=== PATIENT | female | born 1990 | race Caucasian/White ===

== ENCOUNTER 2018-07-15 18:25 | Emergency (ER) | payer MEDICAID, OTHER ==
[~2018-07-15] VITALS: Ht 160 cm; Wt 71.7 kg
--- NOTE | 2018-07-15 19:12 | Diagnostic Imaging Report ---
INDICATION: Right hand and wrist pain. Time of exam 6:46 PM 3 views right hand were obtained. The distal radius and ulna are intact. Carpus is unremarkable. The metacarpals are unremarkable. Phalanges appear to be intact. No fractures are seen. IMPRESSION: No acute bony abnormality is detected. Dictated by: Dictated on workstation # [id number]
--- NOTE | 2018-07-15 19:15 | ED Upper Extremity ---
General Chief Complaint: Upper Extremity Stated Complaint: PT FELL - THINKS SHE BROKE HER RT WRIST Source: patient History of Present Illness Date Seen by Provider: Jul 15, 2018 Time Seen by Provider: 19:15 Initial Comments 28-year-old female presenting with complaints of right wrist and hand pain. She states that her 5-year-old son and mother to shut up. She was running to discipline her son when she tripped over a step and fell. In the process she had landed on outstretched hand and was having pain. She does have some tingling into her fingers. She is able to move her hand and wrist but it is causing pain. There is some mild swelling already. There is no definite bruising. She did not hit her head or have any loss of consciousness. She is not taking anything for pain yet. She denies any prior injuries to that hand. Onset: just prior to arrival Severity: moderate Pain/Injury Location: right wrist, right hand Method of Injury: fell Allergies and Home Medications Patient Home Medication List Home Medication List Reviewed: Yes Review of Systems Constitutional: no symptoms reported EENTM: no symptoms reported Respiratory: no symptoms reported Cardiovascular: no symptoms reported Gastrointestinal: no symptoms reported Genitourinary: no symptoms reported Musculoskeletal: see HPI Skin: see HPI Past Lbuiusl-Uhsjxy-Hqcdac Hx Past Med/Social Hx: Reviewed Nursing Past Med/Soc Hx Physical Exam Vital Signs Vital Signs - First Documented 07/15/18 19:13 Temp 98.1 Pulse 90 Resp 15 B/P (MAP) 125/70 (88) Pulse Ox 98 O2 Delivery Room Air Capillary Refill : Height, Weight, BMI Height: '" Weight: lbs. oz. kg; BMI Method: General Appearance: WD/WN, no apparent distress Cardiovascular: normal peripheral pulses Wrist: Yes bone tenderness (mild on the right side); No deformity, No ecchymosis; Yes limited ROM (on the right due to pain.) Hand: Right (pain and tenderness with making a fist on the right hand and with flexion and extension of the hand at the wrist.) Neurologic/Tendon: normal motor functions, normal tendon functions, sensory deficit (complains of mild tingling in her fingers on the right hand) Neurologic/Psychiatric: alert, normal mood/affect, oriented x 3 Skin: normal color, warm/dry Progress/Results/Core Measures Results/Orders My Orders Orders - MIKE SMALL MD Hand 3 View Right (07/15/18 19:01) Orthopedic Equiment (07/15/18 19:28) Vital Signs/I&O 07/15/18 07/15/18 19:13 19:35 Temp 98.1 Pulse 90 71 Resp 15 16 B/P (MAP) 125/70 (88) 109/75 (86) Pulse Ox 98 95 O2 Delivery Room Air Room Air Progress Progress Note : Progress Note X-rays of the right hand and wrist show no acute fracture or dislocation on my review of the 3 view films. The radiologist's reading also shows no acute fractures or dislocations. Will treat symptomatically with the cockup wrist splint and at home and use NSAIDs and ice, rest and elevation. Diagnostic Imaging Diagonstic Imaging: Xray Plain Films/CT/US/NM/MRI: hand Comments NAME: [facility] REC#: [id number] PT STATUS: REG ER : 1990 PHYSICIAN: MIKE SMALL MD ADMIT DATE: 07/15/18/ER FS Draft Date of Exam:07/15/18 HAND 3 VIEW RIGHT INDICATION: Right hand and wrist pain. Time of exam 6:46 PM 3 views right hand were obtained. The distal radius and ulna are intact. Carpus is unremarkable. The metacarpals are unremarkable. Phalanges appear to be intact. No fractures are seen. IMPRESSION: No acute bony abnormality is detected. Dictated on workstation # [id number] Dict: 07/15/181908 Trans: 07/15/181910 DAVONTE [id number] Interpreted by: JALIL HENSLEY MD Electronically signed by: Reviewed: Reviewed by Me (and radiologist reading) Departure Impression Primary Impression: Unspecified sprain of right wrist, initial encounter Additional Impressions: Contusion of right wrist, initial encounter Fall as cause of accidental injury at home as place of occurrence Qualified Codes: W19.XXXA - Unspecified fall, initial encounter; Y92.009 - Unspecified place in unspecified non-institutional (private) residence as the place of occurrence of the external cause Disposition: 01 HOME, SELF-CARE Condition: Stable Departure-Patient Inst. Decision time for Depature: 19:26 Referrals: MARLENY ANGELO MD (PCP/Family) Primary Care Physician Patient Instructions: Wrist Sprain (DC), Contusion (DC) Add. Discharge Instructions: May use ice 15-20 minutes every few hours as needed for pain and swelling. Ibuprofen or Naproxen as needed for inflammation and pain in the wrist and hand. Use the wrist splint for support or you may try an doris bandage if the splint is too tight. Use this for the next week. Check with clinic if not improving or having more problems over the next week. All discharge instructions reviewed with patient and/or family. Voiced understanding. Images Extremities-Upper 1 - Tenderness, Other-See Progress Note Progress Area of tenderness and mild swelling to back of hand and wrist. MIKE SMALL MD Jul 15, 2018 19:15
[2018-07-15 19:35] VITALS: BP 109/75
== END 2018-07-15 19:35 | disposition home or self-care (01) ==
LOC: EDUNIT# 18:25 → ER FS 18:27
DX: S63.91XA Sprain of unspecified part of right wrist and hand, initial encounter (principal); W10.8XXA Fall (on) (from) other stairs and steps, initial encounter; Y92.009 Unspecified place in unspecified non-institutional (private) residence as the place of occurrence of the external cause
CPT/HCPCS: 73130

== ENCOUNTER → 2019-12-31 | Outpatient (CLI) | payer SELFPAY | LOC: LAB FS 11:29 | PROVIDERS: ATTEND Family Medicine | DX: N92.6 Irregular menstruation, unspecified (principal) | CPT/HCPCS: 36415; 84702 ==

== ENCOUNTER → 2020-01-03 | Outpatient (CLI) | payer SELFPAY | LOC: LAB FS 13:10 | PROVIDERS: ATTEND Family Medicine | DX: O26.859 Spotting complicating pregnancy, unspecified trimester (principal) | CPT/HCPCS: 36415; 84702 ==

== ENCOUNTER 2020-07-17 15:38 | Outpatient (CLI) | payer MEDICAID ==
[~2020-07-17] VITALS: Ht 160 cm; Wt 96.0 kg
[2020-07-17 15:40] VITALS: BP 123/61
--- NOTE | 2020-07-20 08:41 | Physician Query-Final Dx ---
ELLIS HENRIQUEZ 07/20/20 0841: Clinic Account Progress/Dx Physician Query: Please give diagnosis Please include # weeks gestation Date of Service Jul 17, 2020 at 15:38 ZAY CAMARILLO DO 07/21/20 0834: Clinic Account Progress/Dx DIAGNOSIS: Diagnosis 33 week IUP Increased movement ELLIS HENRIQUEZ July 20, 2020 08:41 ZAY CAMARILLO DO July 21, 2020 08:34
== END 2020-07-17 17:02 | disposition home or self-care (01) ==
LOC: LDRP 15:38 → WSo 15:38
PROVIDERS: ATTEND Obstetrics & Gynecology
DX: O36.8190 Decreased fetal movements, unspecified trimester, not applicable or unspecified (principal); Z3A.00 Weeks of gestation of pregnancy not specified
CPT/HCPCS: 99212

== ENCOUNTER → 2020-07-23 | Outpatient (CLI) | payer MEDICAID ==
--- NOTE | 2020-07-23 15:21 | Diagnostic Imaging Report ---
INDICATION: Gestational diabetes. EXAMINATION: Biophysical profile. FINDINGS: There is a single live fetus in a cephalic presentation. heart rate was recorded at 146 bpm. Amniotic fluid index is 11.8 cm. Biophysical profile score is 6 out of 8. Two point reduction was given for lack of movements visualized. IMPRESSION: biophysical profile score 6 out of 8. Dictated by: Dictated on workstation # [id number]
== END ==
LOC: RAD 11:36
PROVIDERS: ATTEND Obstetrics & Gynecology
DX: O24.414 Gestational diabetes mellitus in pregnancy, insulin controlled (principal); Z3A.00 Weeks of gestation of pregnancy not specified
CPT/HCPCS: 76819

== ENCOUNTER 2020-07-30 13:29 | Outpatient (CLI) | payer MEDICAID ==
[~2020-07-30] VITALS: Ht 160 cm; Wt 96.2 kg
[2020-07-30 13:35] VITALS: BP 138/78
[2020-07-30 13:39] VITALS: BP 138/78
[2020-07-30 13:59] LABS: BILIRUBIN,URINE NEGATIVE (NEGATIVE); CLARITY,URINE CLEAR; COLOR,URINE YELLOW; GLUCOSE, URINE (UA) NEGATIVE (NEGATIVE); KETONES,URINE TRACE (NEGATIVE); LEUKOCYTE ESTERASE ,URINE NEGATIVE (NEGATIVE); NITRITE,URINE NEGATIVE (NEGATIVE); PROTEIN,URINE TRACE (NEGATIVE)
[2020-07-30 14:25] LABS: BACTERIA,URINE TRACE /HPF; RBC,URINE 0-2 /HPF; WBC,URINE 0-2 /HPF
--- NOTE | 2020-07-31 08:12 | Physician Query-Final Dx ---
ELLIS HENRIQUEZ 07/31/20 0812: Clinic Account Progress/Dx Physician Query: Please give diagnosis Please include # weeks gestation Date of Service July 30, 2020 at 13:29 ZAY CAMARILLO DO 07/31/20 1457: Clinic Account Progress/Dx DIAGNOSIS: Diagnosis 35 week IUP UTI Irregular contractions ELLIS HENRIQUEZ July 31, 2020 08:12 ZAY CAMARILLO DO July 31, 2020 14:57
[2020-07-31] MEDS ORDERED: PREN1TAB79 PO (12:16)
[2020-07-31] MEDS ORDERED: MONT10TA21 PO (12:16)
[2020-07-31] MEDS ORDERED: RT-ALBUINH INH (12:16)
== END 2020-07-30 15:00 | disposition home or self-care (01) ==
LOC: WSo 13:29 → LDRP 13:31 → WSo 15:00
PROVIDERS: ATTEND Obstetrics & Gynecology
DX: O62.9 Abnormality of forces of labor, unspecified (principal); Z3A.35 35 weeks gestation of pregnancy
CPT/HCPCS: 81000; 87088; 99214

== ENCOUNTER 2020-07-31 11:51 | Outpatient (CLI) | payer MEDICAID ==
[~2020-07-31] VITALS: Ht 160 cm; Wt 95.2 kg
[2020-07-31 11:45] VITALS: BP 134/75
[2020-07-31 12:00] VITALS: BP 134/75
[2020-07-31] MEDS ORDERED: MONT10TA21 PO (12:16)
[2020-07-31] MEDS ORDERED: PREN1TAB79 PO (12:16)
[2020-07-31] MEDS ORDERED: RT-ALBUINH INH (12:16)
[2020-07-31 12:23] VITALS: BP 129/75
[2020-07-31 13:15] VITALS: BP 129/75
--- NOTE | 2020-08-03 07:38 | Physician Query-Final Dx ---
ELLIS HENRIQUEZ 08/03/20 0738: Clinic Account Progress/Dx Physician Query: Please give diagnosis Please include # weeks gestation Date of Service July 31, 2020 at 11:51 ZAY CAMARILLO DO 08/03/20 0753: Clinic Account Progress/Dx DIAGNOSIS: Diagnosis 35 week IUP Irregular contractions Non-compliance with previous instructions ELLIS HENRIQUEZ August 03, 2020 07:38 ZAY CAMARILLO DO August 03, 2020 07:53
== END 2020-07-31 13:15 | disposition home or self-care (01) ==
LOC: WSo 11:51 → LDRP 11:52 → WSo 13:15
PROVIDERS: ATTEND Obstetrics & Gynecology
DX: O62.9 Abnormality of forces of labor, unspecified (principal); Z3A.35 35 weeks gestation of pregnancy
CPT/HCPCS: 99213

== ENCOUNTER 2020-08-07 15:19 | Outpatient (CLI) | payer MEDICAID ==
[~2020-08-07] VITALS: Ht 160 cm; Wt 95.8 kg
[~2020-08-07 15:19] MED LIST: MONT10TA21 PO; PREN1TAB79 PO; RT-ALBUINH INH
[2020-08-07 15:37] VITALS: BP 129/75
--- NOTE | 2020-08-10 07:59 | Physician Query-Final Dx ---
ELLIS HENRIQUEZ 08/10/20 0759: Clinic Account Progress/Dx Physician Query: Please give diagnosis Please include # weeks gestation Date of Service August 07, 2020 at 15:19 BUCK KRAUS MD 08/10/20 1016: Clinic Account Progress/Dx DIAGNOSIS: Diagnosis False labor at 36 weeks gestation ELLIS HENRIQUEZ August 10, 2020 07:59 BUCK KRAUS MD August 10, 2020 10:16
== END 2020-08-07 17:00 | disposition home or self-care (01) ==
LOC: WSo 15:19 → LDRP 15:20 → WSo 17:00
PROVIDERS: ATTEND Obstetrics & Gynecology
DX: O47.03 False labor before 37 completed weeks of gestation, third trimester (principal); Z3A.36 36 weeks gestation of pregnancy
CPT/HCPCS: 99213

== ENCOUNTER 2021-01-10 06:39 | Emergency (ER) | payer MEDICAID ==
--- NOTE | 2021-01-10 06:51 | ED GI ---
General Stated Complaint: EMESIS;CONSTIPATION History of Present Illness Date Seen by Provider: Jan 10, 2021 Time Seen by Provider: 06:46 Initial Comments 30-year-old female presents with onset of nausea and vomiting this morning. Preceding that she states she has been "constipated for 1 week", but had a small BM this morning. This morning when she vomited she said it smelled like "fecal matter". Does complain of abdominal bloating. PMedHx signif only for asthms, SurgHx- cholecycstectomy in 2017. (ROVENSTINEANTHONY L DO) Allergies and Home Medications Allergies Coded Allergies: paroxetine (Verified Allergy, Unknown, Hives, 08/07/20) Patient Home Medication List Home Medication List Reviewed: Yes (ROVENSTINE,ANTHONY L DO) Albuterol Sulfate (Ventolin Hfa) 1 Puff Puff, 2 PUFF INH Q4H, (Reported) Entered as Reported by: TIMMY THOMPSON on 07/31/20 121 Montelukast Sodium (Singulair) 10 Mg Tablet, 10 MG PO DAILY, (Reported) Entered as Reported by: TIMMY THOMPSON on 07/31/20 121 Vit W-Ca,Fe,FA(<1 mg) ( Vitamins) 1 Each Tablet, 1 EACH PO DAILY, (Reported) Entered as Reported by: TIMMY THOMPSON on 07/31/20 121 Review of Systems Review of Systems Constitutional: No fever; malaise; No weakness Respiratory: Denies Cough, Denies Shortness of Air Cardiovascular: Denies Chest Pain, Denies Edema, Denies Lightheadedness Gastrointestinal: See HPI, Abdomen Distended, Abdominal Pain, Constipated; Denies Diarrhea, Denies Difficulty Swallowing; Nausea; Denies Poor Appetite; Vomiting Musculoskeletal: No back pain, No joint pain Skin: No change in color, No rash (ROVENSTINE,ANTHONY L DO) Past Tokztcs-Ewsrra-Tokbyr Hx Patient Social History Tobacco Use?: No (ROVENSTINE,ANTHONY L DO) Seasonal Allergies Seasonal Allergies: No (ROVENSTINE,ANTHONY L DO) Past Medical History Surgeries: Yes Adenoidectomy, Appendectomy, Gallbladder, Tonsillectomy Respiratory: Yes Asthma Cardiac: No Neurological: No Genitourinary: No Gastrointestinal: No Musculoskeletal: No Endocrine: No HEENT: No Cancer: No Psychosocial: No Integumentary: No Blood Disorders: No (ROVENSTINE,ANTHONY L DO) Physical Exam Vital Signs Vital Signs - First Documented 01/10/21 06:43 Pulse 97 Resp 18 B/P (MAP) 128/82 (97) Pulse Ox 96 O2 Delivery Room Air (CHARLEIVIVI TINEO) Vital Signs Capillary Refill : (ROVENSTINE,ANTHONY L DO) Height/Weight/BMI Height: 5'3.00" Weight: 158lbs. oz. 71.075696gd; 37.42 BMI Method:Stated General Appearance: WD/WN, no apparent distress Respiratory: chest non-tender, lungs clear, normal breath sounds Cardiovascular: regular rate, rhythm, no edema, no gallop, no JVD Gastrointestinal: soft, no organomegaly, distended; No guarding, No rebound; tenderness (generalized) Extremities: non-tender, no pedal edema Back: no CVA tenderness, no vertebral tenderness (LETICIASTSIRENA,ANTHONY L DO) Progress/Results/Core Measures Results/Orders Lab Results Laboratory Tests Test 01/10/21 07:05 Range/Units White Blood Count 16.0 H 4.3-11.0 10^3/uL Red Blood Count 5.00 3.80-5.11 10^6/uL Hemoglobin 14.3 11.5-16.0 g/dL Hematocrit 44 35-52 % Mean Corpuscular Volume 87 80-99 fL Mean Corpuscular Hemoglobin 29 25-34 pg Mean Corpuscular Hemoglobin Concent 33 32-36 g/dL Red Cell Distribution Width 14.4 10.0-14.5 % Platelet Count 316 130-400 10^3/uL Mean Platelet Volume 10.1 9.0-12.2 fL Immature Granulocyte % (Auto) 0 % Neutrophils (%) (Auto) 68 42-75 % Lymphocytes (%) (Auto) 24 12-44 % Monocytes (%) (Auto) 7 0-12 % Eosinophils (%) (Auto) 1 0-10 % Basophils (%) (Auto) 0 0-10 % Neutrophils # (Auto) 10.9 H 1.8-7.8 X 10^3 Lymphocytes # (Auto) 3.8 1.0-4.0 X 10^3 Monocytes # (Auto) 1.1 H 0.0-1.0 X 10^3 Eosinophils # (Auto) 0.2 0.0-0.3 10^3/uL Basophils # (Auto) 0.0 0.0-0.1 10^3/uL Immature Granulocyte # (Auto) 0.1 0.0-0.1 10^3/uL Neutrophils % (Manual) 68 % Lymphocytes % (Manual) 24 % Monocytes % (Manual) 7 % Eosinophils % (Manual) 1 % Blood Morphology Comment NORMAL Sodium Level 140 135-145 MMOL/L Potassium Level 3.7 3.6-5.0 MMOL/L Chloride Level 106 98-107 MMOL/L Carbon Dioxide Level 22 21-32 MMOL/L Anion Gap 12 5-14 MMOL/L Blood Urea Nitrogen 15 7-18 MG/DL Creatinine 0.57 L 0.60-1.30 MG/DL Estimat Glomerular Filtration Rate 125 BUN/Creatinine Ratio 26 Glucose Level 109 H 70-105 MG/DL Calcium Level 9.2 8.5-10.1 MG/DL Corrected Calcium 8.5-10.1 MG/DL Total Bilirubin 0.3 0.1-1.0 MG/DL Aspartate Amino Transf (AST/SGOT) 18 5-34 U/L Alanine Aminotransferase (ALT/SGPT) 24 0-55 U/L Alkaline Phosphatase 99 40-136 U/L Total Protein 7.2 6.4-8.2 GM/DL Albumin 4.7 H 3.2-4.5 GM/DL Lipase 25 8-78 U/L (VIVI BARBOSA DO) Medications Given in ED Current Medications Medications Dose Ordered Sig/Patrica Route Start Time Stop Time Status Last Admin Dose Admin Ondansetron HCl 4 mg ONCE ONCE IVP 01/10/21 07:00 01/10/21 07:02 DC 01/10/21 07:02 4 MG (VIVI BARBOSA DO) Vital Signs/I&O 01/10/21 06:43 Pulse 97 Resp 18 B/P (MAP) 128/82 (97) Pulse Ox 96 O2 Delivery Room Air (VIVI BARBOSA DO) Transfer of Care Time: 07:00 Care transferred to: transfer care to Dr Barbosa @ shift change (ANTHONY LEWIS DO) Departure Communication (Admissions) Acute abdominal series: Moderate stool volume. Patient's abdomen soft, nonsurgical on reevaluation. No vomiting in the ED. X- ray suggestive of chronic constipation without obvious bowel obstruction. Will prescribe nausea medication treat constipation with PCP follow-up as scheduled on Monday. Return precautions reviewed. Patient verbalizes understanding agreement discharge instructions prior to departure. (VIVI BARBOSA DO) Impression Primary Impression: Nausea and vomiting Additional Impressions: Constipation Abdominal pain Disposition: HOME, SELF-CARE Condition: Stable Departure-Patient Inst. Decision time for Depature: 08:31 (VIVI BARBOSA DO) Referrals: BRAYDON LEYVA DO (PCP) Primary Care Physician MARLENY ANGELO MD (Family) Primary Care Physician Patient Instructions: Nausea and Vomiting, Adult, Constipation, Adult ED, Abdominal Pain, Adult ED Add. Discharge Instructions: Please take nausea medication as directed. Use fleets enemas x2 and then drink two bottles of magnesium citrate daily for the next 3 days. Follow-up with your PCP on Monday as scheduled for reevaluation. Return to the ED if new or wo rsening symptoms. Scripts Ondansetron (Ondansetron Odt) 4 Mg Tab.rapdis 4 MG PO Q6H, #10 TAB Prov: VIVI BARBOSA DO 01/10/21 ANTHONY LEWIS DO Jan 10, 2021 06:51 VIVI BARBOSA DO Jan 10, 2021 08:34
[2021-01-10] MEDS ORDERED: NS IV 1000 ML 1,000 ML IV SCH (07:00)
[2021-01-10] MEDS ORDERED: ONDANSETRON 4 MG/2 ML (SDV) Z0FRAN IVP ONE (07:00)
--- NOTE | 2021-01-10 07:13 | Diagnostic Imaging Report ---
EXAMINATION: Abdomen 2 view HISTORY: diffuse abd. pain/ constipation COMPARISON: None available. FINDINGS: There is a moderate amount of gas and stool throughout the colon. Nonobstructive bowel gas pattern. No radiopaque foreign body. The lung bases are clear. The osseous structures are intact. Surgical clips are seen within the right upper quadrant and right pelvis. IMPRESSION: Moderate stool burden without other acute abnormality in the abdomen. Dictated by: Dictated on workstation # [id number]
[2021-01-10 07:17] LABS: BASOPHILS % (AUTO) 0 % (0-10); EOSINOPHILS % (AUTO) 1 % (0-10); HEMATOCRIT 44 % (35-52); HEMOGLOBIN 14.3 g/dL (11.5-16.0); LYMPHOCYTES % (AUTO) 24 % (12-44); MEAN CORPUSCULAR HEMOGLOBIN 29 pg (25-34); MEAN CORPUSCULAR HGB CONC 33 g/dL (32-36); MEAN CORPUSCULAR VOLUME 87 fL (80-99); MEAN PLATELET VOLUME 10.1 fL (9.0-12.2); MONOCYTES % (AUTO) 7 % (0-12); NEUTROPHILS % (AUTO) 68 % (42-75); PLATELET COUNT 316 10^3/uL (130-400)
[2021-01-10 07:18] LABS: EOSINOPHILS # (AUTO) 0.2 10^3/uL (0.0-0.3); LYMPHOCYTES # (AUTO) 3.8 X 10^3 (1.0-4.0); MONOCYTES # (AUTO) 1.1 X 10^3 (0.0-1.0); NEUTROPHILS # (AUTO) 10.9 X 10^3 (1.8-7.8)
[2021-01-10 07:35] LABS: EOSINOPHILS % (MANUAL) 1 %; LYMPHOCYTES % (MANUAL) 24 %; MONOCYTES % (MANUAL) 7 %; NEUTROPHILS % (MANUAL) 68 %; RBC MORPH NORMAL
[2021-01-10 07:38] LABS: ALANINE AMINOTRANSFERASE 24 U/L (0-55); ALBUMIN 4.7 GM/DL (3.2-4.5); ALKALINE PHOSPHATASE 99 U/L (40-136); BILIRUBIN,TOTAL 0.3 MG/DL (0.1-1.0); BUN/CREATININE RATIO 26; CALCIUM 9.2 MG/DL (8.5-10.1); CARBON DIOXIDE 22 MMOL/L (21-32); CHLORIDE 106 MMOL/L (98-107); CREATININE SERUM 0.57 MG/DL (0.60-1.30); GFR ESTIMATED 125; GLUCOSE 109 MG/DL (70-105); LIPASE 25 U/L (8-78); POTASSIUM 3.7 MMOL/L (3.6-5.0); SODIUM 140 MMOL/L (135-145); TOTAL PROTEIN 7.2 GM/DL (6.4-8.2)
[2021-01-10] MEDS ORDERED: ONDA4TAB11 PO (08:33)
[2021-01-10 08:39] VITALS: BP 136/74
== END 2021-01-10 08:39 | disposition home or self-care (01) ==
LOC: EDUNIT# 06:39 → ER FS 06:42
DX: R11.2 Nausea with vomiting, unspecified (principal); K59.00 Constipation, unspecified; R10.84 Generalized abdominal pain; J45.909 Unspecified asthma, uncomplicated
CPT/HCPCS: 36415; 74019; 80053; 83690; 85007; 85027

== ENCOUNTER → 2021-01-12 | Outpatient (CLI) | payer MEDICAID ==
[~2021-01-12] MED LIST changes: +ONDA4TAB11 PO
--- NOTE | 2021-01-12 16:03 | Diagnostic Imaging Report ---
INDICATION: Chronic constipation. TIME OF EXAM: 03:11 p.m. FINDINGS: Single view of the abdomen was obtained. There are surgical clips in the right upper quadrant. Bowel gas pattern is nonobstructed. There is moderate stool in the right colon. No free air or pathologic calcifications are seen. IMPRESSION: Moderate stool in the right colon. The study is otherwise unremarkable. Dictated by: Dictated on workstation # [id number]
== END ==
LOC: RAD FS 14:55
PROVIDERS: ATTEND Family Medicine
DX: K59.09 Other constipation (principal)
CPT/HCPCS: 74018

== ENCOUNTER 2021-05-19 04:22 | Emergency (ER) | payer BC, MEDICAID ==
[2021-05-19 04:55] LABS: BASOPHILS % (AUTO) 0 % (0-10); EOSINOPHILS # (AUTO) 0.4 10^3/uL (0.0-0.3); EOSINOPHILS % (AUTO) 3 % (0-10); HEMATOCRIT 40 % (35-52); HEMOGLOBIN 13.5 g/dL (11.5-16.0); LYMPHOCYTES # (AUTO) 3.1 10^3/uL (1.0-4.0); LYMPHOCYTES % (AUTO) 28 % (12-44); MEAN CORPUSCULAR HEMOGLOBIN 29 pg (25-34); MEAN CORPUSCULAR HGB CONC 34 g/dL (32-36); MEAN CORPUSCULAR VOLUME 84 fL (80-99); MEAN PLATELET VOLUME 10.3 fL (9.0-12.2); MONOCYTES # (AUTO) 0.7 10^3/uL (0.0-1.0); MONOCYTES % (AUTO) 6 % (0-12); NEUTROPHILS # (AUTO) 6.6 10^3/uL (1.8-7.8); NEUTROPHILS % (AUTO) 61 % (42-75); PLATELET COUNT 260 10^3/uL (130-400); WHITE BLOOD COUNT 10.8 10^3/uL (4.3-11.0)
[2021-05-19 05:15] LABS: POTASSIUM 3.4 MMOL/L (3.6-5.0); SODIUM 136 MMOL/L (135-145)
[2021-05-19 05:16] LABS: ALANINE AMINOTRANSFERASE 29 U/L (0-55); ALBUMIN 4.4 GM/DL (3.2-4.5); ALKALINE PHOSPHATASE 110 U/L (40-136); BILIRUBIN,TOTAL 0.3 MG/DL (0.1-1.0); BUN/CREATININE RATIO 15; CARBON DIOXIDE 22 MMOL/L (21-32); CHLORIDE 102 MMOL/L (98-107); CREATININE SERUM 0.61 MG/DL (0.60-1.30); GFR ESTIMATED 123; GLUCOSE 108 MG/DL (70-105); TOTAL PROTEIN 7.1 GM/DL (6.4-8.2)
--- NOTE | 2021-05-19 06:01 | ED Chest Pain ---
General Chief Complaint: Cardiac/General Problems Stated Complaint: RAPID HR Nursing Triage Note: Pt complaining of chest pain and felt like her heart was racing. 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 Source: patient Exam Limitations: no limitations History of Present Illness Date Seen by Provider: May 19, 2021 Time Seen by Provider: 02:00 Initial Comments Patient is a 31-year-old female who presents with sudden onset chest pain with palpitations while at work 20 minutes prior to ED arrival. Patient reports sharp pain across her chest which is nonradiating. She reports fast heart rate which is pending and fast. Reports feeling tingling in her left arm following chest pain. Denies nausea shortness of breath or sweats. Denies headache dizziness chills fever sweats. No nausea or vomiting.. No leg pain or swelling. No prior episodes. Denies history of arrhythmia or anxiety. No family history of premature coronary disease or unexplained before age 50. Severity/Quality: moderate Location: substernal Radiation: no radiation Activities at Onset: none Prior CP/Workup: other Modifying Factors: improves with rest ASA po INGREDIENT MIXER: No NTG SL INGREDIENT MIXER: No Associated Symptoms: dizziness Allergies and Home Medications Allergies Coded Allergies: paroxetine (Verified Allergy, Unknown, Hives, 08/07/20) Patient Home Medication List Home Medication List Reviewed: Yes Albuterol Sulfate (Ventolin Hfa) 1 Puff Puff, 2 PUFF INH Q4H, (Reported) Entered as Reported by: TIMMY THOMPSON on 07/31/20 121 Montelukast Sodium (Singulair) 10 Mg Tablet, 10 MG PO DAILY, (Reported) Entered as Reported by: TIMMY THOMPSON on 07/31/20 121 Ondansetron (Ondansetron Odt) 4 Mg Tab.rapdis, 4 MG PO Q6H Prescribed by: VIVI GUERRA on 01/10/21 0833 Vit W-Ca,Fe,FA(<1 mg) ( Vitamins) 1 Each Tablet, 1 EACH PO DAILY, (Reported) Entered as Reported by: TIMMY THOMPSON on 07/31/20 1216 Review of Systems Review of Systems Constitutional: see HPI EENTM: See HPI Respiratory: See HPI Cardiovascular: See HPI Gastrointestinal: See HPI Genitourinary: See HPI Musculoskeletal: see HPI Skin: see HPI Endocrine: See HPI Hematologic/Lymphatic: See HPI All Other Systems Reviewed Negative Unless Noted: Yes Past Vwshmkh-Hamvmh-Drbjtw Hx Patient Social History Tobacco Use?: Yes Use of E-Cig and/or Vaping dev: No Substance use?: No Alcohol Use?: No Pt feels they are or have been: No Seasonal Allergies Seasonal Allergies: No Past Medical History Surgeries: Yes Adenoidectomy, Appendectomy, Gallbladder, Tonsillectomy Respiratory: Yes Asthma Cardiac: No Neurological: No Genitourinary: No Gastrointestinal: No Musculoskeletal: No Endocrine: No HEENT: No Cancer: No Psychosocial: No Integumentary: No Blood Disorders: No Physical Exam Vital Signs Vital Signs - First Documented 05/19/21 04:27 Temp 36.7 Pulse 86 Resp 20 B/P (MAP) 142/77 (98) Pulse Ox 96 O2 Delivery Room Air Capillary Refill : Less Than 3 Seconds Height, Weight, BMI Height: 5'3.00" Weight: 158lbs. oz. 71.944016qd; 37.42 BMI Method:Stated General Appearance: Anxious HEENT: PERRL/EOMI Neck: Normal Inspection, Non Tender, Supple Respiratory: Chest Non Tender, Lungs Clear, Normal Breath Sounds Cardiovascular: Regular Rate, Rhythm, No Edema, No Gallop, No Murmur Gastrointestinal: Non Tender, Soft Extremity: Non Tender, No Calf Tenderness Neurologic/Psychiatric: Alert, Oriented x3 Skin: Normal Color Focused Exam Sepsis Stage: Ruled Out Progress/Results/Core Measures Results/Orders Lab Results Laboratory Tests Test 05/19/21 04:35 05/19/21 06:12 Range/Units White Blood Count 10.8 4.3-11.0 10^3/uL Red Blood Count 4.74 3.80-5.11 10^6/uL Hemoglobin 13.5 11.5-16.0 g/dL Hematocrit 40 35-52 % Mean Corpuscular Volume 84 80-99 fL Mean Corpuscular Hemoglobin 29 25-34 pg Mean Corpuscular Hemoglobin Concent 34 32-36 g/dL Red Cell Distribution Width 13.3 10.0-14.5 % Platelet Count 260 130-400 10^3/uL Mean Platelet Volume 10.3 9.0-12.2 fL Immature Granulocyte % (Auto) 1 % Neutrophils (%) (Auto) 61 42-75 % Lymphocytes (%) (Auto) 28 12-44 % Monocytes (%) (Auto) 6 0-12 % Eosinophils (%) (Auto) 3 0-10 % Basophils (%) (Auto) 0 0-10 % Neutrophils # (Auto) 6.6 1.8-7.8 10^3/uL Lymphocytes # (Auto) 3.1 1.0-4.0 10^3/uL Monocytes # (Auto) 0.7 0.0-1.0 10^3/uL Eosinophils # (Auto) 0.4 H 0.0-0.3 10^3/uL Basophils # (Auto) 0.0 0.0-0.1 10^3/uL Immature Granulocyte # (Auto) 0.1 0.0-0.1 10^3/uL D-Dimer 0.29 0.00-0.49 UG/ML Sodium Level 136 135-145 MMOL/L Potassium Level 3.4 L 3.6-5.0 MMOL/L Chloride Level 102 98-107 MMOL/L Carbon Dioxide Level 22 21-32 MMOL/L Anion Gap 12 5-14 MMOL/L Blood Urea Nitrogen 9 7-18 MG/DL Creatinine 0.61 0.60-1.30 MG/DL Estimat Glomerular Filtration Rate 123 BUN/Creatinine Ratio 15 Glucose Level 108 H 70-105 MG/DL Calcium Level 9.0 8.5-10.1 MG/DL Corrected Calcium 8.7 8.5-10.1 MG/DL Total Bilirubin 0.3 0.1-1.0 MG/DL Aspartate Amino Transf (AST/SGOT) 20 5-34 U/L Alanine Aminotransferase (ALT/SGPT) 29 0-55 U/L Alkaline Phosphatase 110 40-136 U/L Troponin I < 0.30 <0.30 NG/ML Total Protein 7.1 6.4-8.2 GM/DL Albumin 4.4 3.2-4.5 GM/DL My Orders Orders - VIVI GUERRA DO Cbc With Automated Diff (05/19/21 04:42) Comprehensive Metabolic Panel (05/19/21 04:42) Troponin I Fs (05/19/21 04:42) Chest 1 View Ap/Pa Only (05/19/21 04:42) Ekg Tracing (05/19/21 04:42) Fibrin Degradation Products (05/19/21 04:42) Ed Iv/Invasive Line Start (05/19/21 04:43) Troponin I Fs (05/19/21 05:55) Aspirin Chewable Tablet (Baby Aspirin Ch (05/19/21 06:15) Medications Given in ED Current Medications Medications Dose Ordered Sig/Patrica Route Start Time Stop Time Status Last Admin Dose Admin Aspirin 324 mg ONCE ONCE PO 05/19/21 06:15 05/19/21 06:16 DC 05/19/21 06:16 324 MG Vital Signs/I&O 05/19/21 04:27 Temp 36.7 Pulse 86 Resp 20 B/P (MAP) 142/77 (98) Pulse Ox 96 O2 Delivery Room Air Blood Pressure Mean: 98 Departure Communication (Admissions) EKG: Normal sinus rhythm, rate 92, no acute acute ST segment elevation, inverted T waves in the anterior leads with flattening of T waves in lateral leads. Chest x-ray: No acute cardiopulmonary disease. Patient asymptomatic in the emergency department with exception of residual anxiety. No arrhythmia on monitor EKG. EKG does show abnormal T waves in anterior leads. Previous comparison EKG available. Anticipate discharge home if repeat troponin is negative with instructions to follow-up with PCP for reevaluation and further management. Explicit return precautions reviewed. Patient verbalizes understanding agreement discharge instructions prior to departure. Impression Primary Impression: Chest pain Additional Impressions: Palpitations Abnormal EKG Disposition: 01 HOME, SELF-CARE Condition: Stable Departure-Patient Inst. Decision time for Depature: 06:01 Referrals: MARLENY ANGELO MD (PCP/Family) Primary Care Physician Patient Instructions: Chest Pain, Adult ED, Palpitations ED Add. Discharge Instructions: Your evaluated in the emergency department for chest pain and a fast pounding heart rhythm. EKG chest x-ray and labs were performed and are nondiagnostic. EKG was abnormal and requires reevaluation by your primary care provider. Please go home and rest and take 2 daily baby aspirin until your follow-up appointment. In the meantime if you develop chest pain shortness of breath or fast heart rate return to the emergency department. All discharge instructions reviewed with patient and/or family. Voiced understanding. VIVI GUERRA DO May 19, 2021 06:01
[2021-05-19] MEDS ORDERED: ASPIRIN 81 MG CHEW (CHILDREN'S ASA) PO ONE (06:15)
[2021-05-19 06:42] VITALS: BP 142/77
--- NOTE | 2021-05-19 06:46 | Diagnostic Imaging Report ---
INDICATION: Chest pain. FINDINGS: The heart size, mediastinal configuration, and pulmonary vascularity are within normal limits. There is no pleural effusion, pneumothorax, or pneumonia. The osseous structures are unremarkable. IMPRESSION: No acute cardiopulmonary abnormality. Dictated by: Dictated on workstation # [id number]
== END 2021-05-19 06:45 | disposition home or self-care (01) ==
LOC: EDUNIT# 04:22 → ER FS 04:25
DX: R07.9 Chest pain, unspecified (principal); R00.2 Palpitations; R94.31 Abnormal electrocardiogram [ECG] [EKG]; Z72.0 Tobacco use
CPT/HCPCS: 36415; 71045; 80053; 84484; 85025; 85379; 93005

== ENCOUNTER 2022-03-22 00:45 | Emergency (ER) | payer MEDICAID ==
[~2022-03-22] VITALS: Ht 160 cm; Wt 75.4 kg
[~2022-03-22 00:45] MED LIST changes: +ALB0.5V INH; +BUDE10.2 IH; +CETI10TA17 PO; +GFCD10B PO; +INHA1SPA49 MC; +MONT-40 PO; +OSLT75C PO; +PANT40TA52 PO; +PRED10TA22 PO
[2022-03-22 02:19] LABS: BILIRUBIN,URINE NEGATIVE (NEGATIVE); CLARITY,URINE SL CLOUDY; COLOR,URINE YELLOW; GLUCOSE, URINE (UA) NEGATIVE (NEGATIVE); KETONES,URINE NEGATIVE (NEGATIVE); LEUKOCYTE ESTERASE ,URINE TRACE (NEGATIVE); NITRITE,URINE NEGATIVE (NEGATIVE); PH,URINE 6.5 (5-9); PROTEIN,URINE NEGATIVE (NEGATIVE)
--- NOTE | 2022-03-22 02:19 | ED GU-Female ---
General Chief Complaint: OB < 20 WEEKS Stated Complaint: 1W PREFNANT /VAGINAL BLEEDNG/CAMPING Nursing Triage Note: Patient states that she is 17 weeks due on September 01, 2022. Patient states that she began having some mild cramping at approximately 1900 yesterday. Patient reports that she had a gush of blood about an hour ago. 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 She describes the blood as bright red with no bleeding in between the gushes. Source: patient Exam Limitations: no limitations History of Present Illness Date Seen by Provider: Mar 22, 2022 Time Seen by Provider: 01:00 Initial Comments Patient is a 32-year-old, G6, P5, estimated 17-week gestation female who presents with 2 episodes of vaginal bleeding this evening starting 1 hour prior to arrival. Patient states she began lower pelvic cramping earlier this evening and went to use the bathroom and on 2 separate occasions had a gush of bright re d blood come from her vagina. She is not currently active bleeding or spotting. She reports quickening and has confirmed IUP at 7 weeks and is Rh+. She denies flank pain, urinary frequency urgency or dysuria. She denies dizziness or lightheadedness. She is not taking any pain medication or prior to arrival. Patient's OB practices at [facility]. Timing/Duration: just prior to arrival Severity/Quality: other Location: other Radiation: other Activities at Onset: other Sexual [place] History: other Modifying Factors: Improves With Other Associated Symptoms: other Allergies and Home Medications Allergies Coded Allergies: paroxetine (Verified Allergy, Unknown, Hives, 08/07/20) Patient Home Medication List Home Medication List Reviewed: Yes Albuterol Sulfate (Ventolin Hfa) 1 Puff Puff, 2 PUFF INH Q4H PRN for SHORTNESS OF BREATH Prescribed by: ROSHAN CASTILLO on 06/06/21 1224 Albuterol Sulfate (Albuterol Sulfate) 2.5 Mg/0.5 Ml Vial.neb, 2.5 MG INH Q4H Prescribed by: ROSHAN CASTILLO on 06/06/21 1224 Budesonide/Formoterol Fumarate (Symbicort 160-4.5 Mcg Inhaler) 10.2 Gm Hfa.aer.ad, 2 PUFF IH BID Prescribed by: ROSHAN CASTILLO on 06/05/21 1145 Cetirizine HCl (Cetirizine HCl) 10 Mg Tablet, 10 MG PO DAILY, (Reported) Entered as Reported by: RENETTA DINH on 06/03/21 1212 Guaifenesin/Codeine (Robitussin Ac (Codeine) Syrup) 10 Ml Syrp, 5 ML PO Q4H Prescribed by: ROSHAN CASTILLO on 06/06/21 1225 Inhaler,Assist Device,Lg Mask (Procare Spacer with Adult Mask) 1 Each Spacer, EACH [facility] UD, (DME) Prescribed by: ROSHAN CASTILLO on 06/05/21 1145 Montelukast Sodium (Montelukast Sodium) 10 Mg Tablet, 10 MG PO HS Prescribed by: ROSHAN CASTILLO on 06/06/21 1224 Oseltamivir Phosphate (Tamiflu) 75 Mg Cap, 75 MG PO BID Prescribed by: ROSHAN CASTILLO on 06/06/21 1224 Pantoprazole Sodium (Pantoprazole Sodium) 40 Mg Tablet.dr, 40 MG PO DAILY, (Reported) Entered as Reported by: RENETTA DINH on 06/03/21 1212 Prednisone (Prednisone) 10 Mg Tab.ds.pk, 10 MG PO DAILY Prescribed by: ROSHAN CASTILLO on 06/06/21 1224 Review of Systems Review of Systems Constitutional: see HPI Genitourinary: see HPI Expected Date of Delivery: Sep 01, 2022 Past Gegmbfc-Jnvurs-Fknsdw Hx Patient Social History Tobacco Use?: No Substance use?: No Alcohol Use?: No Pt feels they are or have been: No Immunizations Up To Date First/Initial COVID19 Vaccinat: 2020 Seasonal Allergies Seasonal Allergies: No Past Medical History Surgery/Hospitalization HX: ASTHMA, LAP RONIT, APPENDECTOMY, AND TONSILECTOMY. Surgeries: Yes Adenoidectomy, Appendectomy, Gallbladder, Tonsillectomy Respiratory: Yes Asthma Cardiac: No Neurological: No Expected Date of Delivery: Sep 01, 2022 Genitourinary: No Gastrointestinal: No Gastroesophageal Reflux Musculoskeletal: No Endocrine: No HEENT: No Cancer: No Psychosocial: No Integumentary: No Blood Disorders: No Physical Exam Vital Signs Vital Signs - First Documented 03/22/22 00:51 Temp 36.8 Pulse 106 Resp 16 B/P (MAP) 135/83 (100) Pulse Ox 97 O2 Delivery Room Air Capillary Refill : Less Than 3 Seconds Height, Weight, BMI Height: 5'3.00" Weight: 158lbs. oz. 71.385632qg; 29.00 BMI Method:Stated General Appearance: WD/WN, no apparent distress HEENT: PERRL/EOMI Neck: full range of motion Respiratory: chest non-tender, lungs clear Gastrointestinal: non tender, soft Genital/Rectal: other (External genitalia, normal, cervix closed, white discharge present vagina, no bleeding or old blood present.) Neurologic/Psychiatric: alert Progress/Results/Core Measures Suspected Sepsis SIRS Temperature: Pulse: 106 Respiratory Rate: 16 Blood Pressure 135 /83 Mean: 100 Results/Orders My Orders Orders - VIVI GUERRA DO Heart Tones (03/22/22 00:57) Ua Culture If Indicated (03/22/22 01:23) Vital Signs/I&O 03/22/22 00:51 Temp 36.8 Pulse 106 Resp 16 B/P (MAP) 135/83 (100) Pulse Ox 97 O2 Delivery Room Air Capillary Refill : Less Than 3 Seconds 2 Blood Pressure Mean: 100 Departure Communication (Admissions) Reported vaginal bleeding and 17-week gestation female with pelvic cramping. Patient has fecal quickening but I am unable to successfully identify Doppler tones. Patient states she has an anterior placenta making it more difficult to Doppler heart tones. No vaginal bleeding on exam, os is closed. Will obtain UA. Ultrasound is not available at this facility to confirm heart or potential sources of hemorrhage. The patient does not currently meet emergent criteria for OB ultrasound. She agrees to contact her OB in the morning and follow-up in the office later today for OB ultrasound. Return precautions reviewed. Patient verbalizes understanding agreement discharge instructions prior to departure. Impression Primary Impression: Pelvic pain affecting in second trimester, antepartum Additional Impression: Threatened miscarriage Disposition: HOME, SELF-CARE Condition: Stable Departure-Patient Inst. Decision time for Depature: 02:25 Referrals: MARLENY ANGELO MD (PCP/Family) Primary Care Physician Patient Instructions: Bleeding Later in , Threatened Miscarriage Add. Discharge Instructions: Your evaluated for pelvic pain and vaginal bleeding during second trimester . Source of the bleeding is not determined and you are at risk of miscarriage. Please take Tylenol for pain and go home and rest. Contact your OB morning to arrange for outpatient ultrasound. In the meantime if you develop new or worsening symptoms, return to the emergency department. All discharge instructions reviewed with patient and/or family. Voiced understanding. VIVI GUERRA DO Mar 22, 2022 02:18
[2022-03-22 02:28] LABS: BACTERIA,URINE FEW /HPF; SQUAMOUS EPITHELIAL CELL,UR 0-2 /HPF
[2022-03-22 02:35] VITALS: BP 135/83
== END 2022-03-22 02:36 | disposition home or self-care (01) ==
LOC: EDUNIT# 00:45 → ER FS 00:50
DX: O20.0 Threatened abortion (principal); O26.892 Other specified pregnancy related conditions, second trimester; R10.2 Pelvic and perineal pain; Z3A.17 17 weeks gestation of pregnancy; Z28.310 Unvaccinated for COVID-19
CPT/HCPCS: 81000; 87077; 87088

== ENCOUNTER 2022-06-14 12:16 | Outpatient (CLI) | payer MEDICAID ==
[~2022-06-14] VITALS: Ht 160 cm; Wt 82.4 kg
[2022-06-14 12:29] VITALS: BP 123/68
[2022-06-14 12:35] VITALS: BP 114/71
[2022-06-14 12:36] LABS: BILIRUBIN,URINE NEGATIVE (NEGATIVE); CLARITY,URINE CLEAR; COLOR,URINE YELLOW; GLUCOSE, URINE (UA) NEGATIVE (NEGATIVE); KETONES,URINE NEGATIVE (NEGATIVE); LEUKOCYTE ESTERASE ,URINE NEGATIVE (NEGATIVE); NITRITE,URINE NEGATIVE (NEGATIVE); PROTEIN,URINE NEGATIVE (NEGATIVE)
[2022-06-14 12:44] LABS: RBC,URINE RARE /HPF
[2022-06-14 12:45] VITALS: BP 116/69
[2022-06-14 12:45] LABS: BACTERIA,URINE FEW /HPF; WBC,URINE 0-2 /HPF
[2022-06-14 12:55] VITALS: BP 120/69
[2022-06-14] MEDS ORDERED: PREN-164 PO (13:10)
--- NOTE | 2022-06-15 07:58 | Physician Query-Final Dx ---
[place],06/15/22 0758: Clinic Account Progress/Dx Physician Query: Please give diagnosis Please include # weeks gestation Date of Service Jun 14, 2022 at 12:16 ZAY CAMARILLO DO 06/15/22 0832: Clinic Account Progress/Dx DIAGNOSIS: Diagnosis 28 week IUP Lower extremity swelling Irregular cramping [place],MarJun 15, 2022 07:58 ZAY CAMARILLO DO Jun 15, 2022 08:32
== END 2022-06-14 13:23 | disposition home or self-care (01) ==
LOC: LDRP 12:16 → WSo 12:16
PROVIDERS: ATTEND Obstetrics & Gynecology
DX: O62.9 Abnormality of forces of labor, unspecified (principal); O26.892 Other specified pregnancy related conditions, second trimester; M79.89 Other specified soft tissue disorders; Z3A.28 28 weeks gestation of pregnancy
CPT/HCPCS: 81000; 87088; 99213

== ENCOUNTER 2022-08-04 06:56 | Inpatient (IN) | payer BC, MEDICAID ==
[~2022-08-04] VITALS: Ht 160 cm; Wt 87.0 kg
[2022-08-04] VITALS (72 sets, daily range): BP systolic 92–135; BP diastolic 50–92
[~2022-08-04 06:56] MED LIST changes: +MONT-47 PO; -MONT10TA21 PO; +PREN-164 PO
[2022-08-04] MEDS ORDERED: AMPICILLIN FOR IV USE 2,000 MG in NS (IVPB) 50 ML IV SCH (07:28)
[2022-08-04] MEDS ORDERED: MINERAL OIL 30 ML UDC TOP PRN (07:30)
[2022-08-04 07:36] LABS: BILIRUBIN,URINE NEGATIVE (NEGATIVE); CLARITY,URINE CLEAR; COLOR,URINE YELLOW; GLUCOSE, URINE (UA) NEGATIVE (NEGATIVE); KETONES,URINE NEGATIVE (NEGATIVE); LEUKOCYTE ESTERASE ,URINE NEGATIVE (NEGATIVE); NITRITE,URINE NEGATIVE (NEGATIVE); PROTEIN,URINE NEGATIVE (NEGATIVE)
[2022-08-04 07:48] LABS: BACTERIA,URINE NEGATIVE /HPF; SQUAMOUS EPITHELIAL CELL,UR 0-2 /HPF
[2022-08-04 07:54] LABS: BASOPHILS # (AUTO) 0.1 10^3/uL (0.0-0.1); BASOPHILS % (AUTO) 0 % (0-10); EOSINOPHILS # (AUTO) 0.3 10^3/uL (0.0-0.3); EOSINOPHILS % (AUTO) 2 % (0-10); HEMATOCRIT 36 % (35-52); LYMPHOCYTES # (AUTO) 2.4 10^3/uL (1.0-4.0); LYMPHOCYTES % (AUTO) 17 % (12-44); MEAN CORPUSCULAR HEMOGLOBIN 29 pg (25-34); MEAN CORPUSCULAR HGB CONC 34 g/dL (32-36); MEAN CORPUSCULAR VOLUME 85 fL (80-99); MEAN PLATELET VOLUME 10.6 fL (9.0-12.2); MONOCYTES # (AUTO) 0.9 10^3/uL (0.0-1.0); MONOCYTES % (AUTO) 6 % (0-12); NEUTROPHILS # (AUTO) 10.5 10^3/uL (1.8-7.8); NEUTROPHILS % (AUTO) 73 % (42-75); PLATELET COUNT 214 10^3/uL (130-400); WHITE BLOOD COUNT 14.4 10^3/uL (4.3-11.0)
[2022-08-04] MEDS: D5 LR IV SOLUTION 1,000 ML IV SCH ×2 (08:12→19:00)
[2022-08-04 08:13] LABS: BAND NEUTROPHILS 0 %; BASOPHILS % (MANUAL) 0 %; EOSINOPHILS % (MANUAL) 3 %; LYMPHOCYTES % (MANUAL) 18 %; MONOCYTES % (MANUAL) 2 %; NEUTROPHILS % (MANUAL) 77 %; RBC MORPH NORMAL
--- NOTE | 2022-08-04 08:32 | History & Physical-OB ---
OB - Chief Complaint & HPI Date/Time Date of Admission: Date of Admission: August 04, 2022 at 06:56 Date seen by a Provider: August 04, 2022 Time Seen by a Provider: 07:30 Chief Complaint/History OB-Reason for Admission/Chief: Induction of Labor Hx : 6 Hx Para: 5 Expected Date of Delivery: Aug 25, 2022 Gestational Age in Weeks: 37 Gestational Age in Days: 0 Indication for induction: other (GDM: Uncontrolled, IUGR, Grade 3 placenta) History of Labs A+, Ab neg, Rub Imm HIV/RPR/HepB/C NR GBS + in Urine + 3 hr GTT Allergies and Home Medications Allergies Coded Allergies: paroxetine (Verified Allergy, Unknown, Hives, 08/07/20) Patient Home Medication List Home Medication List Reviewed: Yes Albuterol Sulfate (Ventolin Hfa) 1 Puff Puff, 2 PUFF INH Q4H PRN for SHORTNESS OF BREATH Prescribed by: ROSHAN CASTILLO on 06/06/21 1224 Albuterol Sulfate (Albuterol Sulfate) 2.5 Mg/0.5 Ml Vial.neb, 2.5 MG INH Q4H Prescribed by: ROSHAN CASTILLO on 06/06/21 1224 Budesonide/Formoterol Fumarate (Symbicort 160-4.5 Mcg Inhaler) 10.2 Gm Hfa.aer.ad, 2 PUFF IH BID Prescribed by: ROSHAN CASTILLO on 06/05/21 1145 Inhaler,Assist Device,Lg Mask (Procare Spacer with Adult Mask) 1 Each Spacer, E [facility] UD, (DME) Prescribed by: ROSHAN CASTILLO on 06/05/21 1145 Montelukast Sodium (Montelukast Sodium) 10 Mg Tablet, 10 MG PO HS Prescribed by: ROSHAN CASTILLO on 06/06/21 1224 No.137/Iron/Folic Acd ( Vitamin Tablet) 27 Mg-0.8 Mg Tablet, 1 EACH PO, (Reported) Entered as Reported by: GABRIELA SERNA on 06/14/22 1310 OB - History Hx of Present Care: Yes Ultrasounds: Abnormal US findings (IUGR in last US) Obstetrical Complications: Gestational Diabetes, Growth Restriction Medical Complications: None Obstetrical History Hx : 6 Hx Para: 5 Number of Living Children: 5 Patient Past Medical History None Social History/Family History Alcohol Use: Denies Use Recreational Drug Use: No Smoking Cessation: Never smoker 2nd Hand Smoke Exposure: No Immunizations First/Initial COVID19 Vaccine: 2020 Hepatitis A: No Hepatitis B: No Rubella: immune RPR/VDRL: Negative GBS Status: Positive (in urine upon intake) HBsAG: Negative OB - Admission Exam Physical Exam HEENT: NCAT Heart: Rhythm Normal Lungs: Clear Abdomen: Gravid Cervical Dilatation: 2cm Effacement: 75% Station: -1 Membranes: Intact Accelerations: Accelerations Present Decelerations: No Decelerations Short Term Variability: Present Care Home Variability: Average (6-25) Contractions on Admission: 6-10 Minutes Apart Pierce Scoring Tool (Modified) Dilation (cm): 1-2cm (1) Effacement (%): 51-79% (2) Descent/Station: -1,0 (2) Cervix Consistency: Medium(1) Cervix Position: Middle/Mid-Position (1) Add 1 point for: Each previous vaginal delivery (1) Labs Laboratory Tests Test 08/04/22 07:18 08/04/22 07:35 Range/Units Urine Color YELLOW Urine Clarity CLEAR Urine pH 6.0 5-9 Urine Specific [place] 1.025 H 1.016-1.022 Urine Protein NEGATIVE NEGATIVE Urine Glucose (UA) NEGATIVE NEGATIVE Urine Ketones NEGATIVE NEGATIVE Urine Nitrite NEGATIVE NEGATIVE Urine Bilirubin NEGATIVE NEGATIVE Urine Urobilinogen 2.0 < = 1.0 MG/DL Urine Leukocyte Esterase NEGATIVE NEGATIVE Urine RBC (Auto) NEGATIVE NEGATIVE Urine RBC NONE /HPF Urine WBC NONE /HPF Urine Squamous Epithelial Cells 0-2 /HPF Urine Crystals NONE /LPF Urine Bacteria NEGATIVE /HPF Urine Casts NONE /LPF Urine Mucus SMALL H /LPF Urine Culture Indicated NO White Blood Count 14.4 H 4.3-11.0 10^3/uL Red Blood Count 4.19 3.80-5.11 10^6/uL Hemoglobin 12.0 11.5-16.0 g/dL Hematocrit 36 35-52 % Mean Corpuscular Volume 85 80-99 fL Mean Corpuscular Hemoglobin 29 25-34 pg Mean Corpuscular Hemoglobin Concent 34 32-36 g/dL Red Cell Distribution Width 13.8 10.0-14.5 % Platelet Count 214 130-400 10^3/uL Mean Platelet Volume 10.6 9.0-12.2 fL Immature Granulocyte % (Auto) 2 % Neutrophils (%) (Auto) 73 42-75 % Lymphocytes (%) (Auto) 17 12-44 % Monocytes (%) (Auto) 6 0-12 % Eosinophils (%) (Auto) 2 0-10 % Basophils (%) (Auto) 0 0-10 % Neutrophils # (Auto) 10.5 H 1.8-7.8 10^3/uL Lymphocytes # (Auto) 2.4 1.0-4.0 10^3/uL Monocytes # (Auto) 0.9 0.0-1.0 10^3/uL Eosinophils # (Auto) 0.3 0.0-0.3 10^3/uL Basophils # (Auto) 0.1 0.0-0.1 10^3/uL Immature Granulocyte # (Auto) 0.2 H 0.0-0.1 10^3/uL Neutrophils % (Manual) 77 % Lymphocytes % (Manual) 18 % Monocytes % (Manual) 2 % Eosinophils % (Manual) 3 % Basophils % (Manual) 0 % Band Neutrophils 0 % Blood Morphology Comment NORMAL OB - Assessment/Plan/Diagnosis Assessment Assessment: induction of labor Admission Dx Third Trimester 37 week gestation GDM IUGR Admission Status: Inpatient Order (span 2 midnights) Reason for Inpatient Admission: Labor and Post care Plan Other Plan 32 yo @ 37.0 wga here for IOL for uncontrolled GDM, IUGR Plan - GBS +, will start ampicillin - Epidural if desired - Pitocin protocol DENISE ONOFRE MD August 04, 2022 08:32
[2022-08-04] MEDS ORDERED: ONDANSETRON 4 MG/2 ML (SDV) Z0FRAN IV PRN (09:00)
[2022-08-04] MEDS ORDERED: LACTATED RINGERS 1,000 ML IV ONE (09:00)
[2022-08-04] MEDS ORDERED: diphenhydrAMINE 50 MG/ML INJ (BENADRYL) IV PRN (09:00)
[2022-08-04] MEDS ORDERED: NALOXONE 0.4 MG/ML 1 ML (NARCAN) VIAL IV PRN (09:00)
[2022-08-04] MEDS ORDERED: CATHETER FLUSH 10 ML SYR IV PRN (09:00)
[2022-08-04] MEDS ORDERED: fentaNYL 2 mcg/ml BUPIVA 0.125 100 ML ONE (09:15)
[2022-08-04] MEDS ORDERED: BUPIVACAINE 0.25% 10 ML (SENSORCAINE) VIAL ONE (09:49)
[2022-08-04] MEDS ORDERED: fentaNYL INJ 100 MCG/2 ML AMP ONE (09:49)
[2022-08-04] MEDS: fentaNYL 2 mcg/ml BUPIVA 0.125 100 ML IV SCH ×2 (10:16→18:13)
[2022-08-04] MEDS ORDERED: OXYTOCIN PRE-MIX DRIP 500 ML IV ONE (11:53)
[2022-08-04] MEDS: AMPICILLIN FOR IV USE 1,000 MG in NS (IVPB) 50 ML IV SCH ×3 (11:57→20:58)
[2022-08-04] MEDS ORDERED: OXYTOCIN PRE-MIX DRIP 500 ML IV SCH (12:00)
--- NOTE | 2022-08-04 14:50 | Labor Progress Note ---
Labor Progress Note Labor Progress Note Date Seen by Provider: August 04, 2022 Time Seen by Provider: 14:48 Subjective: Pt denies complaints. Epidural in place and working well. Feeling some ctxs but pain well controlled. Objective: /-1 Baseline 140, good variability, no decels, + Accels Assessment/Plan: Brenda Butler is a (32 /Para 6 / 5,Gestational Age (wks)37.0 here for IOL for GDM, IUGR CEFM/TOCO Continue pitocin augmentation Anesthesia: Epidural in place GBS +, continue ampicillin AROM 1400 clear Anticipate vaginal delivery. Vitals - Labs Vital Signs - I&O Vital Signs Date Time Temp Pulse Resp B/P (MAP) Pulse Ox O2 Delivery O2 Flow Rate FiO2 08/04/22 13:55 91 20 108/62 (77) Room Air 08/04/22 13:40 88 20 107/63 (78) Room Air 08/04/22 13:26 88 20 108/66 (80) Room Air 08/04/22 13:10 91 20 111/65 (80) Room Air 08/04/22 12:56 90 20 110/68 (82) Room Air 08/04/22 12:42 91 20 105/58 (74) Room Air 08/04/22 12:26 36.5 95 20 108/56 (73) Room Air 08/04/22 12:11 94 20 115/56 (75) Room Air 08/04/22 11:57 91 20 103/59 (74) Room Air 08/04/22 11:41 91 20 105/57 (73) Room Air 08/04/22 11:24 83 20 108/60 (76) Room Air 08/04/22 11:19 90 20 102/58 (73) Room Air 08/04/22 11:10 86 20 92/53 (66) Room Air 08/04/22 11:04 91 20 105/55 (72) Room Air 08/04/22 11:04 96 20 110/64 (79) Room Air 08/04/22 10:59 100 20 101/68 (79) Room Air 08/04/22 10:55 95 20 104/57 (73) Room Air 08/04/22 10:54 96 20 99/54 (69) 95 Room Air 08/04/22 10:49 93 20 102/50 (67) 95 Room Air 08/04/22 10:44 105 20 109/65 (80) 95 Room Air 08/04/22 10:39 96 20 111/63 (79) 94 Room Air 08/04/22 10:27 104 20 117/75 (89) Room Air 08/04/22 10:24 98 20 117/73 (88) 97 Room Air 08/04/22 10:20 102 20 110/72 (85) 97 Room Air 08/04/22 10:16 97 20 116/77 (90) 96 Room Air 08/04/22 10:14 103 20 125/79 (94) 96 Room Air 08/04/22 10:12 92 20 120/78 (92) 95 Room Air 08/04/22 10:08 93 20 124/79 (94) 96 Room Air 08/04/22 10:07 90 20 119/92 (101) 96 Room Air 08/04/22 10:05 80 20 120/80 (93) 97 Room Air 08/04/22 10:02 97 20 120/76 (91) 96 Room Air 08/04/22 10:01 85 20 135/82 (99) 96 Room Air 08/04/22 09:59 88 20 120/77 (91) 98 Room Air 08/04/22 09:58 90 20 126/76 (93) 97 Room Air 08/04/22 09:54 103 20 130/70 (90) 97 Room Air 08/04/22 09:48 93 20 121/63 (82) Room Air 08/04/22 08:16 36.7 91 20 96 Room Air 08/04/22 07:29 36.7 91 20 117/74 (88) Room Air Labs Laboratory Tests 08/04/22 07:18: Urine Color YELLOW, Urine Clarity CLEAR, Urine pH 6.0, Urine Specific [place] 1.025H, Urine Protein NEGATIVE, Urine Glucose (UA) NEGATIVE, Urine Ketones NEGATIVE, Urine Nitrite NEGATIVE, Urine Bilirubin NEGATIVE, Urine Urobilinogen 2 .0, Urine Leukocyte Esterase NEGATIVE, Urine RBC (Auto) NEGATIVE, Urine RBC NONE, Urine WBC NONE, Urine Squamous Epithelial Cells 0-2, Urine Crystals NONE, Urine Bacteria NEGATIVE, Urine Casts NONE, Urine Mucus SMALLH, Urine Culture In dicated NO 08/04/22 07:35: White Blood Count 14.4H, Red Blood Count 4.19, Hemoglobin 12.0, Hematocrit 36, M jarod Corpuscular Volume 85, Mean Corpuscular Hemoglobin 29, Mean Corpuscular Hemoglobin Concent 34, Red Cell Distribution Width 13.8, Platelet Count 214, Mean Platelet Volume 10.6, Immature Granulocyte % (Auto) 2, Neutrophils (%) (Auto) 73, Lymphocytes (%) (Auto) 17, Monocytes (%) (Auto) 6, Eosinophils (%) (Auto) 2, Basophils (%) (Auto) 0, Neutrophils # (Auto) 10.5H, Lymphocytes # (Auto) 2.4, Monocytes # (Auto) 0.9, Eosinophils # (Auto) 0.3, Basophils # (Auto) 0.1, Immature Granulocyte # (Auto) 0.2H, Neutrophils % (Manual) 77, Lymphocytes % (Manual) 18, Monocytes % (Manual) 2, Eosinophils % (Manual) 3, Basophils % (Manual) 0, Band Neutrophils 0, Blood Morphology Comment NORMAL, Syphilis Serology Non-Reactive DENISE ONOFRE MD August 04, 2022 14:50
[2022-08-04] MEDS ORDERED: ACETAMINOPHEN 500 MG TAB (TYLENOL) ONE (20:43)
[2022-08-04] MEDS ORDERED: ACETAMINOPHEN 500 MG TAB (TYLENOL) PO ONE (20:45)
[2022-08-05] VITALS (15 sets, daily range): BP systolic 107–132; BP diastolic 57–83
--- NOTE | 2022-08-05 01:18 | OB Labor & Delivery Record ---
Vag Delivery Note Vag Delivery Note Date of Delivery: 08/05/22 Preoperative Diagnosis: Brenda Butler is a (32 /Para 6 / 5, Gestational Age (wks)37.1 wga here for IOL for GDM and IUGR Postoperative Diagnosis: Same Surgeon: DENISE ONOFRE MD Car Dropper: None Anesthesia: Epidural Delivery Type: @ 0056 Findings: Viable female , apgars 8/9, weight 5#4, 2370 grams Lacerations: None Intact placenta with 3 vessel cord. Nuchal cord x1. No body cord or shoulder dystocia Marginal insertion on placenta Estimated Blood Loss: 120 ml Complications: None Condition: Stable Description of Procedure: The patient is a 32 year old female who presented for IOL for GDM and IUGR. She was admitted and informed consent was obtained. Her labor course was remarkable for augmentation of labor with pitocin. She progressed to complete dilatation and began to push. She was then set up for delivery. The 's head was delivered atraumatically in the JOSE MIGUEL position. The shoulders and remainder of the infant's body were then delivered without difficulty. Upon delivery, the infant was vigorous and placed on maternal chest and the mouth and nares were bulb suctioned. After a delay of 3 mins cord was doubly clamped and cut by FOB and the remained on maternal chest. An intact placenta with 3-vessel cord delivered via [place] and there was found to be minimal bleeding.~ Vigorous fundal massage was performed and the fundus was found to be firm. IV oxytocin was given. Examination of the vagina and perineum revealed no lacerations that require repair. Following the repair, sponge, instrument and needle counts were correct. Mom and baby were both in stable condition in the labor suite. Vitals - Labs Vital Signs - I&O Vital Signs Date Time Temp Pulse Resp B/P (MAP) Pulse Ox O2 Delivery O2 Flow Rate FiO2 08/04/22 17:55 82 20 103/58 (73) Room Air 08/04/22 17:40 81 20 103/59 (74) Room Air 08/04/22 17:25 85 20 107/59 (75) Room Air 08/04/22 17:13 82 20 102/59 (73) Room Air 08/04/22 16:57 91 20 119/62 (81) Room Air 08/04/22 16:41 83 20 114/61 (78) Room Air 08/04/22 16:25 90 20 107/56 (73) Room Air 08/04/22 16:11 93 20 113/56 (75) Room Air 08/04/22 15:57 93 20 104/67 (79) Room Air 08/04/22 15:41 84 20 108/73 (85) Room Air 08/04/22 15:25 88 20 107/59 (75) Room Air 08/04/22 15:11 93 20 106/66 (79) Room Air 08/04/22 14:57 82 20 98/55 (69) Room Air 08/04/22 14:41 90 20 114/58 (76) Room Air 08/04/22 14:25 97 20 113/61 (78) Room Air 08/04/22 14:12 93 20 108/59 (75) Room Air 08/04/22 13:55 91 20 108/62 (77) Room Air 08/04/22 13:40 88 20 107/63 (78) Room Air 08/04/22 13:26 88 20 108/66 (80) Room Air 08/04/22 13:10 91 20 111/65 (80) Room Air 08/04/22 12:56 90 20 110/68 (82) Room Air 08/04/22 12:42 91 20 105/58 (74) Room Air 08/04/22 12:26 36.5 95 20 108/56 (73) Room Air 08/04/22 12:11 94 20 115/56 (75) Room Air 08/04/22 11:57 91 20 103/59 (74) Room Air 08/04/22 11:41 91 20 105/57 (73) Room Air 08/04/22 11:24 83 20 108/60 (76) Room Air 08/04/22 11:19 90 20 102/58 (73) Room Air 08/04/22 11:10 86 20 92/53 (66) Room Air 08/04/22 11:04 91 20 105/55 (72) Room Air 08/04/22 11:04 96 20 110/64 (79) Room Air 08/04/22 10:59 100 20 101/68 (79) Room Air 08/04/22 10:55 95 20 104/57 (73) Room Air 08/04/22 10:54 96 20 99/54 (69) 95 Room Air 08/04/22 10:49 93 20 102/50 (67) 95 Room Air 08/04/22 10:44 105 20 109/65 (80) 95 Room Air 08/04/22 10:39 96 20 111/63 (79) 94 Room Air 08/04/22 10:27 104 20 117/75 (89) Room Air 08/04/22 10:24 98 20 117/73 (88) 97 Room Air 08/04/22 10:20 102 20 110/72 (85) 97 Room Air 08/04/22 10:16 97 20 116/77 (90) 96 Room Air 08/04/22 10:14 103 20 125/79 (94) 96 Room Air 08/04/22 10:12 92 20 120/78 (92) 95 Room Air 08/04/22 10:08 93 20 124/79 (94) 96 Room Air 08/04/22 10:07 90 20 119/92 (101) 96 Room Air 08/04/22 10:05 80 20 120/80 (93) 97 Room Air 08/04/22 10:02 97 20 120/76 (91) 96 Room Air 08/04/22 10:01 85 20 135/82 (99) 96 Room Air 08/04/22 09:59 88 20 120/77 (91) 98 Room Air 08/04/22 09:58 90 20 126/76 (93) 97 Room Air 08/04/22 09:54 103 20 130/70 (90) 97 Room Air 08/04/22 09:48 93 20 121/63 (82) Room Air 08/04/22 08:16 36.7 91 20 96 Room Air 08/04/22 07:29 36.7 91 20 117/74 (88) Room Air I & O 08/05/22 06:59 Intake Total 1064.8 ml Balance 1064.8 ml Labs Laboratory Tests 08/04/22 07:18: Urine Color YELLOW, Urine Clarity CLEAR, Urine pH 6.0, Urine Specific [place] 1.025H, Urine Protein NEGATIVE, Urine Glucose (UA) NEGATIVE, Urine Ketones NE GATIVE, Urine Nitrite NEGATIVE, Urine Bilirubin NEGATIVE, Urine Urobilinogen 2.0, Urine Leukocyte Esterase NEGATIVE, Urine RBC (Auto) NEGATIVE, Urine RBC NONE, Urine WBC NONE, Urine Squamous Epithelial Cells 0-2, Urine Crystals NONE, Urine Bacteria NEGATIVE, Urine Casts NONE, Urine Mucus SMALLH, Urine Culture Indicated NO 08/04/22 07:35: White Blood Count 14.4H, Red Blood Count 4.19, Hemoglobin 12.0, Hematocrit 36, Mean Corpuscular Volume 85, Mean Corpuscular Hemoglobin 29, Mean Corpuscular Hemoglobin Concent 34, Red Cell Distribution Width 13.8, Platelet Count 214, Mean Platelet Volume 10.6, Immature Granulocyte % (Auto) 2, Neutrophils (%) (Auto) 73, Lymphocytes (%) (Auto) 17, Monocytes (%) (Auto) 6, Eosinophils (%) (Auto) 2, Basophils (%) (Auto) 0, Neutrophils # (Auto) 10.5H, Lymphocytes # (Auto) 2.4, Monocytes # (Auto) 0.9, Eosinophils # (Auto) 0.3, Basophils # (Auto) 0.1, Immature Granulocyte # (Auto) 0.2H, Neutrophils % (Manual) 77, Lymphocytes % (Manual) 18, Monocytes % (Manual) 2, Eosinophils % (Manual) 3, Basophils % (Manual) 0, Band Neutrophils 0, Blood Morphology Comment NORMAL, Syphilis Serology Non-Reactive 08/04/22 21:01: Glucometer 93 DENISE ONOFRE MD August 05, 2022 01:18
[2022-08-05] MEDS ORDERED: BENZOCAINE/MENTHOL (DERMOPLAST) 56 ML CAN TP PRN (01:30)
[2022-08-05] MEDS: ACETAMINOPHEN 500 MG TAB (TYLENOL) PO SCH ×4 (01:30→18:24)
[2022-08-05] MEDS ORDERED: OXYTOCIN PRE-MIX DRIP 500 ML IV SCH (01:30)
[2022-08-05] MEDS: IBUPROFEN 600 MG (MOTRIN) TAB PO SCH ×4 (01:30→18:24)
[2022-08-05] MEDS ORDERED: WITCH HAZEL(TUCKS) 40 EA JAR TOP PRN (01:30)
[2022-08-05] MEDS ORDERED: CATHETER FLUSH 10 ML SYR IV SCH (06:00)
[2022-08-05] MEDS: PRENATAL VITAMIN 1 EA TAB PO SCH (06:54)
--- NOTE | 2022-08-05 08:22 | Progress Note ---
Subjective Subjective/Events-last exam Doing well. Lochia decreased. Objective Exam Last Set of Vital Signs Vital Signs Date Time Temp Pulse Resp B/P (MAP) Pulse Ox O2 Delivery O2 Flow Rate FiO2 08/05/22 06:00 36.4 88 18 107/62 (77) 96 Room Air Capillary Refill : Less Than 3 Seconds I&O Intake and Output 08/05/22 00:00 Intake Total 1114.8 ml Balance 1114.8 ml Intake IV Total 1114.8 ml Daily Weight Change No General: Alert, Oriented X3, Cooperative Psych/Mental Status: Mental Status NL, Mood NL Results/Procedures Lab Laboratory Tests 08/04/22 21:01: Glucometer 93 Assessment/Plan Assessment/Plan Assessment & Plan s/p at 37w1d IOL for GDM and IUGR Uncomplicated delivery; routine care. AJAY TAVAREZ DO August 05, 2022 08:22
[2022-08-05] MEDS: FERROUS SULF 325 MG (IRON) TAB PO SCH (09:09)
[2022-08-05] MEDS: DOCUSATE SODIUM 100 MG (COLACE) CAP PO SCH ×2 (09:10→20:51)
[2022-08-06] MEDS: ACETAMINOPHEN 500 MG TAB (TYLENOL) PO SCH ×3 (00:20→11:20)
[2022-08-06] MEDS: IBUPROFEN 600 MG (MOTRIN) TAB PO SCH ×3 (00:20→11:19)
[2022-08-06 03:20] VITALS: BP 113/67
[2022-08-06 07:21] LABS: BASOPHILS # (AUTO) 0.1 10^3/uL (0.0-0.1); BASOPHILS % (AUTO) 1 % (0-10); EOSINOPHILS # (AUTO) 0.3 10^3/uL (0.0-0.3); EOSINOPHILS % (AUTO) 3 % (0-10); HEMATOCRIT 35 % (35-52); HEMOGLOBIN 11.5 g/dL (11.5-16.0); LYMPHOCYTES # (AUTO) 2.8 10^3/uL (1.0-4.0); LYMPHOCYTES % (AUTO) 22 % (12-44); MEAN CORPUSCULAR HEMOGLOBIN 29 pg (25-34); MEAN CORPUSCULAR HGB CONC 33 g/dL (32-36); MEAN CORPUSCULAR VOLUME 87 fL (80-99); MEAN PLATELET VOLUME 11.8 fL (9.0-12.2); MONOCYTES % (AUTO) 8 % (0-12); NEUTROPHILS # (AUTO) 8.5 10^3/uL (1.8-7.8); NEUTROPHILS % (AUTO) 66 % (42-75); PLATELET COUNT 228 10^3/uL (130-400); WHITE BLOOD COUNT 12.9 10^3/uL (4.3-11.0)
[2022-08-06] MEDS ORDERED: IBUP-844 PO (08:27)
--- NOTE | 2022-08-06 08:28 | Discharge Summary ---
Discharge Summary Hospital Course Hospital Course Date of Admission: August 04, 2022 at 06:56 Admission Diagnosis : Family Physician/Provider: Vianca Yadav MD Date of Discharge: 08/06/22 Discharge Diagnosis: Spontaneous vaginal delivery History of GDM Hospital Course: 32 yo G6 now P6 admitted at 37w0d for IOL due to gestational diabetes and IUGR complicating . Had unremarkable labor, delivery and course. Labs and Pending Lab Test: Laboratory Tests 08/06/22 05:45: White Blood Count 12.9H, Red Blood Count 4.01, Hemoglobin 11.5, Hematocrit 35, Mean Corpuscular Volume 87, Mean Corpuscular Hemoglobin 29, Mean Corpuscular Hemoglobin Concent 33, Red Cell Distribution Width 14.1, Platelet Count 228, Mean Platelet Volume 11.8, Immature Granulocyte % (Auto) 1, Neutrophils (%) (Auto) 66, Lymphocytes (%) (Auto) 22, Monocytes (%) (Auto) 8, Eosinophils (%) (Auto) 3, Basophils (%) (Auto) 1, Neutrophils # (Auto) 8.5H, Lymphocytes # (Auto) 2.8, Monocytes # (Auto) 1.0, Eosinophils # (Auto) 0.3, Basophils # (Auto) 0.1, Immature Granulocyte # (Auto) 0.2H Home Meds Active Ibu (Ibuprofen) 600 Mg Tablet 600 Mg PO Q6H PRN Albuterol Sulfate 2.5 Mg/0.5 Ml Vial.neb 2.5 Mg INH Q4H J44.9 Montelukast Sodium 10 Mg Tablet 10 Mg PO HS LAST FILLED 04-07-2021 #30/30 DAY SUPPLY Ventolin Hfa (Albuterol Sulfate) 1 Puff Puff 2 Puff INH Q4H PRN Procare Spacer with Adult Mask (Inhaler,Assist Device,Lg Mask) 1 Each Spacer Each UD Symbicort 160-4.5 Mcg Inhaler (Budesonide/Formoterol Fumarate) 10.2 Gm Hfa.aer.ad 2 Puff IH BID Reported Vitamin Tablet ( No.137/Iron/Folic Acd) 27 Mg-0.8 Mg Tablet 1 Each PO Assessment/Pt DC Instructions Follow up with Dr. Vuong in 6 weeks Discharge Diet: No Restrictions Activity as Tolerated: Yes (avoid strenuous activity x 6 weeks) Discharge Physical Examination Allergies: Coded Allergies: paroxetine (Verified Allergy, Unknown, Hives, 08/07/20) General Appearance: No Apparent Distress, WD/WN Respiratory: Normal Breath Sounds Cardiovascular: Regular Rate, Rhythm, No Murmur Skin: Normal Color, Warm/Dry Neurologic/Psychiatric: Alert, Normal Mood/Affect JOSELINE BROTHERS MD August 06, 2022 08:28
[2022-08-06 11:15] VITALS: BP 129/84
[2022-08-06] MEDS: DOCUSATE SODIUM 100 MG (COLACE) CAP PO SCH (11:19)
[2022-08-06] MEDS: FERROUS SULF 325 MG (IRON) TAB PO SCH (11:19)
[2022-08-06] MEDS: PRENATAL VITAMIN 1 EA TAB PO SCH (11:19)
== END 2022-08-06 11:25 | disposition home or self-care (01) | DRG 807 ==
LOC: LDRP 06:56
PROVIDERS: ADMIT Family Medicine; ATTEND Family Medicine
PROC: 10E0XZZ Delivery of Products of Conception, External Approach (ICD-10-PCS; principal; 2022-08-05)
PROC: 10907ZC Drainage of Amniotic Fluid, Therapeutic from Products of Conception, Via Natural or Artificial Opening (ICD-10-PCS; 2022-08-05)
DX: O24.429 Gestational diabetes mellitus in childbirth, unspecified control (principal); Z37.0 Single live birth; Z3A.37 37 weeks gestation of pregnancy; O36.5930 Maternal care for other known or suspected poor fetal growth, third trimester, not applicable or unspecified; O99.824 Streptococcus B carrier state complicating childbirth; O69.81X0 Labor and delivery complicated by cord around neck, without compression, not applicable or unspecified; O43.893 Other placental disorders, third trimester
CPT/HCPCS: 36415; 81000; 82947; 85007; 85025; 85027; 86780; 86850; 86900; 86901

== ENCOUNTER 2023-01-22 10:54 | Emergency (ER) | payer BC, MEDICAID ==
[~2023-01-22] VITALS: Ht 160 cm; Wt 83.0 kg
[~2023-01-22 10:54] MED LIST changes: +IBUP-844 PO
[2023-01-22] MEDS ORDERED: IBUPROFEN 800 MG TABLET PO STA (11:04)
--- NOTE | 2023-01-22 11:12 | ED Fall/Injury ---
General Stated Complaint: ANKLE INJ Source: patient History of Present Illness Date Seen by Provider: Jan 22, 2023 Time Seen by Provider: 10:56 Initial Comments 32-year-old female presenting with complaints of accidentally stepping in a hole and falling. She has lateral right ankle pain and has not been able to bear weight on the right leg since the injury. This occurred approximately 10 to 15 minutes prior to arrival in the ED. She also has abrasions to her left knee and left elbow. She denies any injury or pain around the right knee. She came straight to the emergency department and has not taken anything for pain. She denies hitting her head or losing consciousness. Occurred: just prior to arrival Severity: severe Injuries/Pain Location: upper extremity (Abrasions to the left elbow), lower extremity (Lateral right ankle pain and swelling. Abrasions to the left knee.) Context: other (Stepped in a hole) Loss of Consciousness: no loss of consciousness Modifying Factors: Worse With Movement Associated Symptoms (Fall): No Abdominal Pain, No Chest Pain, No Confusion, No Dizziness, No Headache, No Lightheadedness, No Muscle Spasms, No Nausea/Vomiting, No Neck Pain, No Ringing in Ears, No Seizures, No Shortness of Air, No Slurred Speech; Trouble Walking (Able to bear weight due to the right ankle pain and swelling) Allergies and Home Medications Allergies Coded Allergies: paroxetine (Verified Allergy, Unknown, Hives, 08/07/20) Patient Home Medication List Home Medication List Reviewed: Yes Albuterol Sulfate (Ventolin Hfa) 1 Puff Puff, 2 PUFF INH Q4H PRN for SHORTNESS OF BREATH Prescribed by: ROSHAN CASTILLO on 06/06/21 1224 Albuterol Sulfate (Albuterol Sulfate) 2.5 Mg/0.5 Ml Vial.neb, 2.5 MG INH Q4H Prescribed by: ROSHAN CASTILLO on 06/06/21 1224 Budesonide/Formoterol Fumarate (Symbicort 160-4.5 Mcg Inhaler) 10.2 Gm Hfa.aer.ad, 2 PUFF IH BID Prescribed by: ROSHAN CASTILLO on 06/05/21 1145 Hydrocodone/Acetaminophen (Hydrocodone-Acetamin 5-325 mg) 5 Mg-325 Mg Tablet, 1 TAB PO Q6H PRN for PAIN SEVERE Prescribed by: MIKE SMALL on 01/22/23 1135 Ibuprofen (Ibu) 600 Mg Tablet, 600 MG PO Q6H PRN for PAIN Prescribed by: JOSELINE BROTHERS on 08/06/22 0827 Ibuprofen (Ibuprofen) 800 Mg Tablet, 800 MG PO Q8H PRN for PAIN Prescribed by: MIKE SMALL on 01/22/23 1134 Inhaler,Assist Device,Lg Mask (Procare Spacer with Adult Mask) 1 Each Spacer, EACH MC UD, (DME) Prescribed by: ROSHAN CASTILLO on 06/05/21 1145 Montelukast Sodium (Montelukast Sodium) 10 Mg Tablet, 10 MG PO HS Prescribed by: ROSHAN CASTILLO on 06/06/21 1224 No.137/Iron/Folic Acd ( Vitamin Tablet) 27 Mg-0.8 Mg Tablet, 1 EACH PO, (Reported) Entered as Reported by: GABRIELA SERNA on 06/14/22 1310 Review of Systems Review of Systems Constitutional: No chills, No fever Eyes: No Symptoms Reported Ears, Nose, Mouth, Throat: no symptoms reported Respiratory: no symptoms reported Cardiovascular: no symptoms reported Gastrointestinal: no symptoms reported Genitourinary: no symptoms reported Musculoskeletal: see HPI Skin: see HPI Psychiatric/Neurological: Denies Numbness Past Vpxuuwx-[id number]-Zpxvde Hx Immunizations Up To Date First/Initial COVID19 Vaccinat: 2020 Seasonal Allergies Seasonal Allergies: No Past Medical History Surgery/Hospitalization HX: APPENDECTOMY, CHOLECYSTECTOMY, TONSILLECTOMY Surgeries: Yes Adenoidectomy, Appendectomy, Gallbladder, Tonsillectomy Respiratory: Yes Asthma Cardiac: No Neurological: No Genitourinary: No Gastrointestinal: No Gastroesophageal Reflux Musculoskeletal: No Endocrine: No HEENT: No Cancer: No Psychosocial: No Integumentary: No Blood Disorders: No Physical Exam Vital Signs Vital Signs - First Documented 01/22/23 11:08 Temp 36.8 Pulse 78 Resp 16 B/P (MAP) 153/70 (97) Pulse Ox 97 O2 Delivery Room Air Capillary Refill : Height, Weight, BMI Height: 5'3.00" Weight: 158lbs. oz. 71.695342jx; 33.98 BMI Method:Stated General Appearance: WD/WN, mild distress HEENT: PERRL/EOMI Cardiovascular: normal peripheral pulses Extremities: normal capillary refill, other (Tenderness to palpation and movement of the right lateral ankle. There is mild swelling over the lateral malleolus as well. There is no bruising. She has normal pulses and capillary refill. She has intact sensation and motor movement. Superficial abrasions to the left knee and left elbow.) Neurologic/Psychiatric: alert, oriented x 3 Skin: warm/dry, other (Superficial abrasions to the left knee and left elbow) Kiesha Coma Score Best Eye Response: (4) Open Spontaneously Best Verbal Response: (5) Oriented Best Motor Response: (6) Obeys Commands [place] Total: 15 Progress/Results/Core Measures Results/Orders My Orders Orders - MIKE SMALL MD Ibuprofen Tablet (Ibuprofen Tablet) (01/22/23 11:04) Ice: Apply To Affected Area (01/22/23 11:05) Elevate Affected Extremity (01/22/23 11:05) Ankle 3 View Right (01/22/23 11:05) Femi Bandage (01/22/23 11:36) Air Strup Ankle Brace (01/22/23 11:36) Vital Signs/I&O 01/22/23 01/22/23 11:08 11:47 Temp 36.8 36.8 Pulse 78 78 Resp 16 16 B/P (MAP) 153/70 (97) 153/70 Pulse Ox 97 97 O2 Delivery Room Air Room Air Progress Progress Note #1: Progress Note Differential diagnosis includes right ankle sprain, right ankle fracture, tibia fracture, fibula fracture, foot sprain. Ice and elevate the right ankle to help with pain and swelling. Ibuprofen 800 mg p.o. x1 to help with pain and inflammation. Obtain x-rays of the right ankle to look for signs of acute bony abnormality. She denied any pain with palpation and movement of the right knee so will defer tibia and fibula x-rays looking for proximal fibula fracture. Progress Note #2: Time: 11:18 Progress Note On my personal review and interpretation of the three-view films of the right ankle I did not appreciate any acute fracture or bony displacement. Awaiting radiology overread. We will order crutches as well as ankle splint. Weightbearing as tolerated with the crutches. Check back with primary care provider for continued concerns. Continue with anti-inflammatory as well as can write for a few narcotic pain pills if needed. Follow RICE therapy with rest, ice, compression, elevation. 1130 radiologist did not see any acute bony abnormality or fracture. Proceed with plan as above. Prescribed hydrocodone 5/325 1 p.o. every 6 hours as needed severe pain. Also prescribed ibuprofen 800 mg p.o. every 8 hours as needed pain and inflammation. Counseled on follow-up and return precautions. Prescription given for crutches Diagnostic Imaging Diagonstic Imaging: Xray Plain Films/CT/US/NM/MRI: ankle Comments NAME: HUAN CAPPS [facility] REC#: [id number] PT STATUS: REG ER : 1990 PHYSICIAN: MIKE SMALL MD ADMIT DATE: 01/22/23/ER FS Draft Date of Exam:01/22/23 ANKLE 3 VIEW RIGHT INDICATION: pain and lateral swelling after stepped in hole just prior to arrival TECHNIQUE: Three views of the right ankle CORRELATION STUDY: None FINDINGS: The bony alignment is anatomic. The talar dome is intact. The ankle mortise is maintained. There is no acute fracture or dislocation. Soft tissues are unremarkable. IMPRESSION: Negative for acute bony abnormality of the ankle. Dictated on workstation # [id number] Dict: 01/22/23 1124 Trans: 01/22/23 1125 DO [id number] Interpreted by: EMA CHAVEZ DO Electronically signed by: Reviewed: Reviewed by Me Departure Impression Primary Impression: Pain and swelling of right ankle Additional Impression: Right ankle sprain Qualified Codes: S93.401A - Sprain of unspecified ligament of right ankle, initial encounter Disposition: 01 HOME, SELF-CARE Condition: Stable Departure-Patient Inst. Decision time for Depature: 11:35 Referrals: MARLENY ANGELO MD (PCP/Family) Primary Care Physician Patient Instructions: Ankle Sprain ED, How to Use Crutches, How to Use an Elastic Bandage, Using Cold for Pain Add. Discharge Instructions: Try to keep foot elevated to help with ankle pain and swelling. Use ice 15 to 20 minutes every few hours as needed for pain and swelling. Use an Femi bandage for compression and support. Use the splint to give additional support to the ankle as well. Crutches for weightbearing as tolerated. Continue with ibuprofen 800 mg every 8 hours as needed for pain and inflammation. Scripts Hydrocodone/Acetaminophen (Hydrocodone-Acetamin 5-325 mg) 5 Mg-325 Mg Tablet 1 TAB PO Q6H PRN for PAIN SEVERE for 3 Days, #12 TAB 0 Refills Prov: MIKE SMALL MD 01/22/23 Ibuprofen (Ibuprofen) 800 Mg Tablet 800 MG PO Q8H PRN for PAIN for 10 Days, #30 TAB 0 Refills Prov: MIKE SMALL MD 01/22/23 Work/School Note: Work Release Form Date Seen in the Emergency Department: Jan 22, 2023 Return to Work: Jan 23, 2023 Restrictions: No PE-Until Released, No Sports-Until Released Other Restrictions Listed Below: Crutches and ankle splint for weight bearing as tolerated x 2 weeks MIKE SMALL MD Jan 22, 2023 11:12
--- NOTE | 2023-01-22 11:25 | Diagnostic Imaging Report ---
INDICATION: pain and lateral swelling after stepped in hole just prior to arrival TECHNIQUE: Three views of the right ankle CORRELATION STUDY: None FINDINGS: The bony alignment is anatomic. The talar dome is intact. The ankle mortise is maintained. There is no acute fracture or dislocation. Soft tissues are unremarkable. IMPRESSION: Negative for acute bony abnormality of the ankle. Dictated by: Dictated on workstation # [id number]
[2023-01-22] MEDS ORDERED: ACHD5005 PO (11:34)
[2023-01-22] MEDS ORDERED: IBUP-1780 PO (11:34)
[2023-01-22 11:47] VITALS: BP 153/70
== END 2023-01-22 11:47 | disposition home or self-care (01) ==
LOC: EDUNIT# 10:54 → ER FS 10:55
DX: S93.401A Sprain of unspecified ligament of right ankle, initial encounter (principal); S50.312A Abrasion of left elbow, initial encounter; S80.212A Abrasion, left knee, initial encounter; W17.2XXA Fall into hole, initial encounter
CPT/HCPCS: 73610